=== PATIENT | female | born 1960 | race Caucasian/White ===

== ENCOUNTER 2016-10-22 11:52 | Emergency (ER) | payer MEDICAID ==
[~2016-10-22] VITALS: Ht 162.6 cm; Wt 86.0 kg
[~2016-10-22 11:52] MED LIST: ASPI1TAB69 PO; CLON.5 PO; CLON1 PO; GABA600T PO; LAMI200T PO; OMEP40CA2 PO; REME15TA PO; ULTR50TA5 PO; VARE.5 PO; ZOLO100T PO
[2016-10-22 11:57] VITALS: BP 130/84; PULSE 91; RESP 16; TEMP 98.3; O2SAT 96
--- NOTE | 2016-10-22 12:21 | PD ---
HPI Chief Complaint: Numbness/Tingling Time Seen by Provider: 12:01 Travel History International Travel<30 days: No Contact w/Intl Traveler<30days: No Traveled to known affect area: No History of Present Illness HPI Patient is a 56-year-old female with history of chronic back pain who presents the emergency department today with complaint of left low back pain radiating down the left buttock and leg. She describes this as a burning, zinging type pain. Symptoms are moderate. Made worse with movement. She presents to the ER today, stating that her symptoms are preventing her from sleep. Patient requests narcotics for pain, "that's the only thing that helps me". Patient has prescriptions for temazepam, clonazepam, Toradol. States that these are not helping. Per prescription drug monitoring program patient received 120 tablets of Dardanelle 5 /325 filled on 10/[address] Dawn. Patient did not initially offer this as a home medication until it was questioned after I searched on the drug monitoring program. PFSH Past Medical History Hx Anticoagulant Therapy: Yes (BABY ASA DAILY) Arthritis: No Asthma: Yes Autoimmune Disease: No Blood Disorders: Yes Bipolar Disorder: Yes Anxiety: Yes Depression: Yes Cancer: Yes (cancerous polyps) Cardiac Catheterization: Yes Cardiovascular Problems: Yes ([place], CHOL) High Cholesterol: Yes Chemotherapy: Yes (LAST CHEMO 08/17/12) Chest Pain: Yes Congestive Heart Failure: No Cirrhosis: Yes COPD: Yes Diabetes: No Diminished Hearing: Yes (RIGHT EAR [place]) Endocrine: No Gastrointestinal Disorders: Yes GERD: Yes Glaucoma: No Genitourinary: No Headaches: Yes Hiatal Hernia: Yes Hypertension: Yes Immune Disorder: No Kidney Stones: Yes Musculoskeletal: Yes (CHRONIC BACK PAIN) Neurologic: Yes (BACK AND HIP PAIN) Psychiatric: Yes Reproductive: No Respiratory: Yes (copd) Immunizations Current: Yes Migraines: Yes Myocardial Infarction: Yes (x1 2000) Pneumonia: Yes Radiation Therapy: No Sickle Cell Disease: No Sleep Apnea: No Thyroid Disease: No Tetanus Vaccination: Unknown Influenza Vaccination: Yes PNEUMOCCOCAL Vaccine (Year): 2 ?: Not Menopausal: Yes : 3 Para: 3 Past Surgical History Abdominal Surgery: Yes (LAPROSCOPY FOR ADHESIONS) AICD: No Appendectomy: Yes Arteriovenous Shunt: No Cardiac Surgery: No Cholecystectomy: Yes Ear Surgery: No Endocrine Surgery: No Eye Surgery: No Genitourinary Surgery: No Hysterectomy: Yes Insulin Pump: No Joint Replacement: No Neurologic Surgery: Yes (L4 L5 S1 FUSION. 1997) Oral Surgery: Yes (sinus) Pacemaker: No Thoracic Surgery: Yes Tonsillectomy: Yes Other Surgery: Yes (breast augmentation-1995) Social History Alcohol Use: No Tobacco Use: Yes (3-4 cigs a day) Substance Use: No (hx of alcohol abuse) Allergies-Medications (Allergen,Severity, Reaction): Coded Allergies: Erythromycin (Verified Allergy, Severe, TONGUE SWELLING, 10/22/16) Lidocaine (Verified Allergy, Severe, HIVES, 10/22/16) Nonsteroidal Anti-Inflammatory Agts (Verified Allergy, Severe, 10/22/16) Sulfa (Verified Allergy, Severe, HIVES, 10/22/16) Reported Meds & Prescriptions Reported Meds & Active Scripts Active Reported Ultram (Tramadol HCl) 50 Mg Tab 50 Mg PO Q4H PRN Zoloft (Sertraline HCl) 100 Mg Tab 200 Mg PO DAILY Omeprazole 40 Mg Cap 40 Mg PO DAILY Lamictal (Lamotrigine) 200 Mg Tab 200 Mg PO DAILY Gabapentin 600 Mg Tab 600 Mg PO BID Chantix (Varenicline) 0.5 Mg Tab 0.5 Mg PO DAILY Days 1-3 Klonopin (Clonazepam) 1 Mg Tab 1 Mg PO HS Klonopin (Clonazepam) 0.5 Mg Tab 0.5 Mg PO DAILY Aspirin 81 Mg Tabdr 81 Mg PO DAILY Remeron (Mirtazapine) 15 Mg Tab 15 Mg PO HS Review of Systems Except as stated in HPI: all other systems reviewed are Neg Physical Exam Narrative GENERAL: Obese middle-aged female in no acute distress SKIN: Focused skin assessment warm/dry. HEAD: Normocephalic. EYES: No scleral icterus. No injection or drainage. ENT: Mucous membranes pink and moist. NECK: Supple CARDIOVASCULAR: Regular rate and rhythm. RESPIRATORY: No accessory muscle use. GASTROINTESTINAL: Abdomen obese MUSCULOSKELETAL: No focal midline tenderness to palpation of the cervical, thoracic, lumbar spine. Midline lumbar midline scar, well-healed. Reproducible tenderness to palpation over the left sacroiliac joint that reproduces pain down the left leg in a radicular-type pattern. 5 out of 5 strength in the bilateral upper and lower extremities, distal sensation grossly intact though patient complains of some subjective paresthesias of the dorsal aspect of the left foot. Good capillary refill, pulses, reflexes. NEUROLOGICAL: Awake and alert. Ambulates independently without antalgic gait. Normal speech. PSYCHIATRIC: Appropriate mood and affect; insight and judgment normal. Data Data Last Documented VS Vital Signs Date Time Temp Pulse Resp B/P Pulse Ox O2 Delivery O2 Flow Rate FiO2 10/22/16 12:12 16 96 Room Air 10/22/16 11:57 98.3 91 130/84 MDM Medical Decision Making Medical Screen Exam Complete: Yes Emergency Medical Condition: Yes Medical Record Reviewed: Yes Differential Diagnosis 56-year-old female with history of chronic back pain here with complaint of acute worsening pain over the last several days radiating down the left buttock and leg. Symptoms are classic for sciatica, differential includes acute on chronic pain, drug-seeking behavior. She does not have any red flags, warning signs to warrant any imaging for acute disc herniation, cauda equina, epidural abscess. Narrative Course Discussed diagnosis of sciatica and potential therapies including steroids, anti -inflammatories, ice/heat, Lidoderm patches, chiropractic medicine. Given her nondisclosure of her 120 tablets of Dardanelle, concern for drug-seeking behavior and I did not feel comfortable prescribing narcotic analgesics. Patient also has ample benzodiazepines at home. Patient was quite cantankerous when I suggested steroids, stating that she has side effects of insomnia and agitation with these in the past. I informed her that she certainly did not have to take steroids, that was her choice, but is able recommended treatment option for sciatica. The elderly female in the room, presumably patient's mother, was also trying to help calm her down. Patient became quite emotional when I informed narcotic analgesics were not on the table. She stated she has a history of GERD, and therefore cannot take anti-inflammatories. Patient takes a baby aspirin a day without any symptoms however. I encouraged her to take these with food, and continue her omeprazole. Reaffirmed conservative management such as ice, heat, Lidoderm patches. Patient remains unpleased with care and continues to request narcotics, which I'm not obliged to prescribed. Diagnosis Primary Impression: Sciatica Qualified Code: M54.32 - Sciatica of left side Additional Impression: Drug-seeking behavior Referrals: Primary Care Physician as needed Additional Instructions: You have classic sciatica. This is a clinical diagnosis and does not warrant any imaging. You were offered steroids but declined due to history of side effects. My recommendation is to take anti-inflammatories, Tylenol, ibuprofen, Aleve. I know this has bothered your GERD in the past. I recommend that you take these with food and continue your antacids. Ice the affected area 20 minutes at a time 3-4 times daily. Consider chiropractic medicine. Consider Lidoderm patches. Narcotics are not indicated for this pain. Med/Other Pt SpecificInfo: No Change to Meds Disposition: 01 DISCHARGE HOME Condition: Stable Aurea Garner MD October 22, 2016 12:21
[2016-10-22] MEDS ORDERED: LIPI40TA PO (12:26)
[2016-10-22] MEDS ORDERED: CLON.5 PO (12:26)
[2016-10-22] MEDS ORDERED: HYDR-3111 PO (12:26)
[2016-10-22] MEDS ORDERED: CLON1 PO (12:26)
[2016-10-22] MEDS ORDERED: TEMA30CA PO (12:26)
== END 2016-10-22 12:31 | disposition home or self-care (01) ==
LOC: PHED 11:52
DX: M54.32 Sciatica, left side (principal); I10 Essential (primary) hypertension; E78.00 Pure hypercholesterolemia, unspecified; H91.91 Unspecified hearing loss, right ear; Z76.5 Malingerer [conscious simulation]; Z72.0 Tobacco use; Z79.82 Long term (current) use of aspirin; Z87.09 Personal history of other diseases of the respiratory system; Z86.2 Personal history of diseases of the blood and blood-forming organs and certain disorders involving the immune mechanism; Z86.59 Personal history of other mental and behavioral disorders; Z86.79 Personal history of other diseases of the circulatory system; Z87.19 Personal history of other diseases of the digestive system; Z87.39 Personal history of other diseases of the musculoskeletal system and connective tissue; Z86.69 Personal history of other diseases of the nervous system and sense organs
CPT/HCPCS: 99283

== ENCOUNTER 2016-11-23 16:12 | Emergency (ER) | payer MEDICAID ==
[~2016-11-23] VITALS: Ht 162.6 cm; Wt 85.7 kg
[~2016-11-23 16:12] MED LIST changes: -GABA600T PO; +HYDR-3111 PO; +LIPI40TA PO; +TEMA30CA PO; -ULTR50TA5 PO; -VARE.5 PO
[2016-11-23 16:17] VITALS: BP 112/61; PULSE 83; RESP 16; TEMP 98; O2SAT 98
[2016-11-23] MEDS ORDERED: ASPI81CH7 CHEW (16:31)
--- NOTE | 2016-11-23 16:48 | PD ---
HPI Chief Complaint: Back/ Neck Pain or Injury Time Seen by Provider: 16:41 Travel History International Travel<30 days: No Contact w/Intl Traveler<30days: No Traveled to known affect area: No History of Present Illness HPI 56-year-old female presents to the emergency room for evaluation of acute on chronic low back pain radiating down her left lower extremity. Patient states she has had back problems since 1995. States it is usually controlled by one month ago she lifted a heavy box and felt immediate pain in the left lower back. She went to the emergency room for [facility] where they performed a CT scan that showed slipped disc. Patient states since then she has had continued pain in the left lower back. She came to the emergency department today because she recently ran out of her pain medication. Patient reports left lower extremity paresthesias. States she had loose bowels 3 days ago and she was unable to make it to the toilet. She has been ambulatory since onset of symptoms. Patient has been taking Tylenol without relief in symptoms. She took Motrin this morning; states it makes her stomach hurt which is what she reports as an allergy. Denies saddle anesthesia. States she cannot get into her primary care physician because her doctor is on vacation for 10 days. PFSH Past Medical History Hx Anticoagulant Therapy: Yes (BABY ASA DAILY) Arthritis: No Asthma: Yes Autoimmune Disease: No Blood Disorders: Yes Bipolar Disorder: Yes Anxiety: Yes Depression: Yes Cancer: Yes (cancerous polyps) Cardiac Catheterization: Yes Cardiovascular Problems: Yes ([place] , CHOL) High Cholesterol: Yes Chemotherapy: Yes (LAST CHEMO 08/17/12) Chest Pain: Yes Congestive Heart Failure: No Cirrhosis: Yes COPD: Yes Diabetes: No Diminished Hearing: Yes (RIGHT EAR [place]) Endocrine: No Gastrointestinal Disorders: Yes GERD: Yes Glaucoma: No Genitourinary: No Headaches: Yes Hiatal Hernia: Yes Hypertension: Yes Immune Disorder: No Kidney Stones: Yes Musculoskeletal: Yes (CHRONIC BACK PAIN) Neurologic: Yes (BACK AND HIP PAIN) Psychiatric: Yes Reproductive: No Respiratory: Yes (copd) Immunizations Current: Yes Migraines: Yes Myocardial Infarction: Yes (x1 2000) Pneumonia: Yes Radiation Therapy: No Sickle Cell Disease: No Sleep Apnea: No Thyroid Disease: No PNEUMOCCOCAL Vaccine (Year): 2 ?: Not Menopausal: Yes : 3 Para: 3 Past Surgical History Abdominal Surgery: Yes (LAPROSCOPY FOR ADHESIONS) AICD: No Appendectomy: Yes Arteriovenous Shunt: No Cardiac Surgery: No Cholecystectomy: Yes Ear Surgery: No Endocrine Surgery: No Eye Surgery: No Genitourinary Surgery: No Hysterectomy: Yes Insulin Pump: No Joint Replacement: No Neurologic Surgery: Yes (L4 L5 S1 FUSION. 1997) Oral Surgery: Yes (sinus) Pacemaker: No Thoracic Surgery: Yes Tonsillectomy: Yes Other Surgery: Yes (breast augmentation-1995) Social History Alcohol Use: No Tobacco Use: Yes (06/07 PPD) Substance Use: No (hx of alcohol abuse) Allergies-Medications (Allergen,Severity, Reaction): Coded Allergies: Erythromycin (Verified Allergy, Severe, TONGUE SWELLING, 11/23/16) Lidocaine (Verified Allergy, Severe, HIVES, 11/23/16) Nonsteroidal Anti-Inflammatory Agts (Verified Allergy, Severe, 11/23/16) Sulfa (Verified Allergy, Severe, HIVES, 11/23/16) Reported Meds & Prescriptions Reported Meds & Active Scripts Active Reported Aspirin Children's (Aspirin) 81 Mg Chew 81 Mg CHEW DAILY Lipitor (Atorvastatin Calcium) 40 Mg Tab 40 Mg PO HS Temazepam 30 Mg Cap 15 Mg PO HS PRN Zoloft (Sertraline HCl) 100 Mg Tab 100 Mg PO DAILY Omeprazole 40 Mg Cap 40 Mg PO DAILY Lamictal (Lamotrigine) 200 Mg Tab 200 Mg PO DAILY Review of Systems Except as stated in HPI: all other systems reviewed are Neg Physical Exam Narrative GENERAL: Well-nourished, well-developed female in no acute distress. Afebrile. Patient is able to push himself up off the bed with her legs. SKIN: Focused skin assessment warm/dry. HEAD: Normocephalic. EYES: No scleral icterus. No injection or drainage. NECK: Supple, trachea midline. No JVD or lymphadenopathy. CARDIOVASCULAR: Regular rate and rhythm without murmurs, gallops, or rubs. RESPIRATORY: Breath sounds equal bilaterally. No accessory muscle use. BACK: No CVA tenderness. No rash. No point tenderness on palpation of the spine. RECTAL EXAM: No masses or tenderness, stool is brown. Rectal tone normal. Data Data Last Documented VS Vital Signs Date Time Temp Pulse Resp B/P Pulse Ox O2 Delivery O2 Flow Rate FiO2 11/23/16 16:17 98.0 83 16 112/61 98 Orders Orphenadrine Inj (Norflex Inj) (11/23/16 17:30) Morphine Inj (Morphine Inj) (11/23/16 17:30) [facility] Medical Decision Making Medical Screen Exam Complete: Yes Emergency Medical Condition: Yes Medical Record Reviewed: Yes Differential Diagnosis Sciatica, acute on chronic low back pain, drug-seeking behavior, muscle spasm Narrative Course 56 year-old female presents to the emergency room for evaluation of acute on chronic sciatica. Of note, patient was in the emergency room one month ago for same complaint and provider at that time was concerned for drug seeking behavior. According to [facility], patient got #120 hydrocodone/acetaminophen 5/ 325 on October 12. States her pain is usually controlled but since running out of her medication, it is severe. Patient cannot get into her primary care physician because her PCP is on vacation. She reports chronic left lower extremity paresthesias. She says and states she had one episode of fecal incontinence several days ago. Patient is not incontinent while in the emergency room. She is ambulatory without difficulty. Rectal tone is normal. She is able to push up off the bed with both legs. Strength 5/5 and equal in lower extremities. She was told that it is against emergency room policy to prescribe narcotic pain medication for chronic conditions. She was given 1 dose of morphine and Norflex in the emergency room and discharged with instructions to take ibuprofen. Told to follow-up with her primary care physician or return for worsening symptoms. She understands and agrees to plan. Diagnosis Primary Impression: Sciatica Qualified Code: M54.32 - Sciatica of left side Referrals: Primary Care Physician Patient Instructions: General Instructions, Sciatica (ED) Additional Instructions: Rest and drink plenty of fluids. Take 400-600 mg ibuprofen with food as directed, as needed for pain. Apply ice to the affected area for 20 minutes at a time, as needed for pain and swelling. Follow-up with a primary care physician. Return to the emergency room for worsening symptoms. Med/Other Pt SpecificInfo: Prescription(s) given Disposition: 01 DISCHARGE HOME Condition: Stable Marissa Ojeda Nov 23, 2016 16:48 Marissa Ojeda Nov 23, 2016 16:48
[2016-11-23] MEDS ORDERED: ORPHENADRINE INJ 60 MG/2 ML AMP IM ONE (17:30)
[2016-11-23] MEDS ORDERED: MORPHINE SULFATE 4 MG/ML INJ IM ONE (17:30)
== END 2016-11-23 18:07 | disposition home or self-care (01) ==
LOC: PHEFT 16:12
DX: M54.32 Sciatica, left side (principal); E78.00 Pure hypercholesterolemia, unspecified; I10 Essential (primary) hypertension; J44.9 Chronic obstructive pulmonary disease, unspecified; I25.2 Old myocardial infarction; Z79.01 Long term (current) use of anticoagulants
CPT/HCPCS: 96372; 99284; J2270; J2360

== ENCOUNTER 2017-03-07 14:29 | Emergency (ER) | payer MEDICAID ==
[~2017-03-07] VITALS: Ht 162.6 cm; Wt 86.0 kg
[~2017-03-07 14:29] MED LIST changes: -ASPI1TAB69 PO; +ASPI81CH7 CHEW; -CLON.5 PO; -CLON1 PO; -HYDR-3111 PO; -REME15TA PO
[2017-03-07 14:34] VITALS: BP 139/64; PULSE 87; RESP 16; TEMP 98.9; O2SAT 96
[2017-03-07] MEDS ORDERED: HYDR-3533 PO (14:46)
[2017-03-07] MEDS ORDERED: GABA600T PO (14:46)
[2017-03-07] MEDS ORDERED: LISI-519 PO (14:46)
[2017-03-07] MEDS ORDERED: CLON.5 PO (14:46)
--- NOTE | 2017-03-07 14:53 | PD ---
HPI Chief Complaint: Injury Time Seen by Provider: 14:38 Travel History International Travel<30 days: No Contact w/Intl Traveler<30days: No Traveled to known affect area: No History of Present Illness HPI 56-year-old female presents to the emergency room for evaluation of right wrist pain and swelling after injuring it last night. Patient slipped and fell forward landing with an outstretched right arm. She denies any other injuries. She reports immediate pain localized to the radial aspect. It is constant, throbbing pain. She took her prescribed hydrocodone this morning followed by Tylenol without significant relief in symptoms. Pain is worsened with range of motion. Radiates into the upper arm. She denies paresthesias. Patient reports fracture in the same wrist 3-5 years ago. PFSH Past Medical History Hx Anticoagulant Therapy: Yes (BABY ASA DAILY) Arthritis: No Asthma: Yes Autoimmune Disease: No Blood Disorders: Yes Bipolar Disorder: Yes Anxiety: Yes Depression: Yes Cancer: Yes (cancerous polyps) Cardiac Catheterization: Yes Cardiovascular Problems: Yes ([place] , CHOL) High Cholesterol: Yes Chemotherapy: Yes (LAST CHEMO 08/17/12) Chest Pain: Yes Congestive Heart Failure: No Cirrhosis: Yes COPD: Yes Diabetes: No Diminished Hearing: Yes (RIGHT EAR [place]) Endocrine: No Gastrointestinal Disorders: Yes GERD: Yes Glaucoma: No Genitourinary: No Headaches: Yes Hiatal Hernia: Yes Hypertension: Yes Immune Disorder: No Kidney Stones: Yes Musculoskeletal: Yes (CHRONIC BACK PAIN) Neurologic: Yes (BACK AND HIP PAIN) Psychiatric: Yes Reproductive: No Respiratory: Yes (copd) Immunizations Current: Yes Migraines: Yes Myocardial Infarction: Yes (x1 2000) Pneumonia: Yes Radiation Therapy: No Sickle Cell Disease: No Sleep Apnea: No Thyroid Disease: No PNEUMOCCOCAL Vaccine (Year): 2 Menopausal: Yes : 3 Para: 3 Past Surgical History Abdominal Surgery: Yes (LAPROSCOPY FOR ADHESIONS) AICD: No Appendectomy: Yes Arteriovenous Shunt: No Cardiac Surgery: No Cholecystectomy: Yes Ear Surgery: No Endocrine Surgery: No Eye Surgery: No Genitourinary Surgery: No Hysterectomy: Yes Insulin Pump: No Joint Replacement: No Neurologic Surgery: Yes (L4 L5 S1 FUSION. 1997) Oral Surgery: Yes (sinus) Pacemaker: No Thoracic Surgery: Yes Tonsillectomy: Yes Other Surgery: Yes (breast augmentation-1995) Social History Alcohol Use: No Tobacco Use: Yes (1/2 PPD) Substance Use: No (hx of alcohol abuse) Allergies-Medications (Allergen,Severity, Reaction): Coded Allergies: Sulfa (Sulfonamide Antibiotics) (Unverified Allergy, Severe, HIVES, ) diclofenac (Unverified Allergy, Severe, 01/18/17) erythromycin base (Unverified Allergy, Severe, TONGUE SWELLING, 01/18/17) etodolac (Unverified Allergy, Severe, 01/18/17) flurbiprofen (Unverified Allergy, Severe, 01/18/17) ibuprofen (Unverified Allergy, Severe, 01/18/17) indomethacin (Unverified Allergy, Severe, 01/18/17) ketoprofen (Unverified Allergy, Severe, 01/18/17) ketorolac (Unverified Allergy, Severe, 01/18/17) lidocaine (Unverified Allergy, Severe, HIVES, 01/18/17) naproxen (Unverified Allergy, Severe, 01/18/17) oxaprozin (Unverified Allergy, Severe, 01/18/17) Reported Meds & Prescriptions Reported Meds & Active Scripts Active Reported Gabapentin 600 Mg Tab 600 Mg PO HS Lisinopril 5 Mg Tab 5 Mg PO DAILY Lortab (Hydrocodone-Acetaminophen) 5-325 Mg Tab 1 Tab PO BID Klonopin (Clonazepam) 0.5 Mg Tab 0.5 Mg PO TID Aspirin Children's (Aspirin) 81 Mg Chew 81 Mg CHEW DAILY Lipitor (Atorvastatin Calcium) 40 Mg Tab 40 Mg PO HS Zoloft (Sertraline HCl) 100 Mg Tab 200 Mg PO DAILY Omeprazole 40 Mg Cap 40 Mg PO DAILY Lamictal (Lamotrigine) 200 Mg Tab 100 Mg PO BID Review of Systems Except as stated in HPI: all other systems reviewed are Neg Physical Exam Narrative GENERAL: Well-nourished, well-developed female in no acute distress. Afebrile. Ambulatory. SKIN: Focused skin assessment warm/dry. Mild ecchymosis of the right distal radius. HEAD: Normocephalic. EYES: No scleral icterus. No injection or drainage. NECK: Supple, trachea midline. No JVD or lymphadenopathy. CARDIOVASCULAR: Regular rate and rhythm without murmurs, gallops, or rubs. RESPIRATORY: Breath sounds equal bilaterally. No accessory muscle use. MUSCULOSKELETAL: No cyanosis. Mild edema of the right wrist especially on the radial side. Extreme tenderness to palpation of the distal radius. 2+ radial pulse. Full range of motion of the wrist and hand but with pain. No bony tenderness to palpation of the hand. There is mild tenderness to palpation of the elbow. Data Data Last Documented VS Vital Signs Date Time Temp Pulse Resp B/P (MAP) Pulse Ox O2 Delivery O2 Flow Rate FiO2 03/07/17 14:34 98.9 87 16 139/64 (89) 96 Orders Orders Wrist, Complete ([id number]) (03/07/17 ) Forearm (2vws) (03/07/17 ) Splint Or Brace Apply/Monitor (03/07/17 15:18) [facility] Medical Decision Making Medical Screen Exam Complete: Yes Emergency Medical Condition: Yes Medical Record Reviewed: Yes Differential Diagnosis Sprain, strain, fracture, dislocation, contusion Narrative Course 56-year-old female presents to the emergency room for evaluation of right wrist pain and swelling after trip and fall last night. Patient landed on outstretched arm and has pain localized to the distal radius with radiation into the upper extremity. Worse with range of motion. Physical exam is reassuring. There is mild edema of the right wrist especially on the radial side. Extreme tenderness to palpation of the distal radius. 2+ radial pulse. Full range of motion of the wrist and hand but with pain. No bony tenderness to palpation of the hand. There is mild tenderness to palpation of the elbow. Radial, ulnar, and median nerves intact. Wrist and forearm x-rays are negative for acute bony abnormality. This is likely sprain. Patient placed in a Velcro wrist splint and told to follow-up with her primary care physician if symptoms persist or return for worsening symptoms. She has an appointment in 8 days. She understands and agrees to plan. Diagnosis Primary Impression: Right wrist sprain Qualified Codes: S63.501A - Unspecified sprain of right wrist, initial encounter Referrals: Primary Care Physician Additional Instructions: Rest and drink plenty of fluids. Take Tylenol as directed, as needed for pain. Apply ice to the affected area for 20 minutes at a time, as needed for pain and swelling. Follow-up with a primary care physician. Return to the emergency room for worsening symptoms. Disposition: 01 DISCHARGE HOME Condition: Stable Marissa Ojeda Mar 07, 2017 14:53
--- NOTE | 2017-03-07 15:15 | RADRPT ---
EXAM DATE/TIME: 03/07/2017 15:03 [facility] COMPARISON: No previous studies available for comparison. INDICATIONS : Right distal forearm pain. MEDICAL HISTORY : None. SURGICAL HISTORY : None. ENCOUNTER: Initial ACUITY: 1 day PAIN SCORE: 8/10 LOCATION: Right distal forearm. FINDINGS: Two view examination of the right forearm demonstrates no evidence of fracture or dislocation. Bony mineralization is normal. The soft tissue structures are intact. CONCLUSION: 1. Negative examination of the forearm. Charles Johnston MD on March 07, 2017 at 15:13 Board Certified Radiologist. This report was verified electronically.
--- NOTE | 2017-03-07 15:16 | RADRPT ---
EXAM DATE/TIME: 03/07/2017 15:00 [facility] COMPARISON: No previous studies available for comparison. INDICATIONS : Right wrist pain. MEDICAL HISTORY : None. SURGICAL HISTORY : None. ENCOUNTER: Initial ACUITY: 1 day PAIN SCORE: 8/10 LOCATION: Right wrist. FINDINGS: Three view examination of the right wrist demonstrates no soft tissue swelling, dislocation, or fract ure. The carpal bones are in normal alignment. The joint spaces are maintained. Bony mineralizatio n is normal. CONCLUSION: Unremarkable examination of the right wrist. Praneeth Macedo MD on March 07, 2017 at 15:12 Board Certified Radiologist. This report was verified electronically.
== END 2017-03-07 15:40 | disposition home or self-care (01) ==
LOC: PHEFT 14:29
DX: S63.501A Unspecified sprain of right wrist, initial encounter (principal); W01.0XXA Fall on same level from slipping, tripping and stumbling without subsequent striking against object, initial encounter; Z79.82 Long term (current) use of aspirin; I25.2 Old myocardial infarction; E78.00 Pure hypercholesterolemia, unspecified; I10 Essential (primary) hypertension; J44.9 Chronic obstructive pulmonary disease, unspecified
CPT/HCPCS: 73090; 73110; 99283; L3908